=== PATIENT | female | born 1965 | race American Indian/Alaskan Native ===

== ENCOUNTER 2016-10-13 14:49 | Emergency (ER) | payer OTHER ==
--- NOTE | 2016-10-13 16:38 | Emergency Department Report ---
Chief Complaint: High BP Stated Complaint: HIGH BP Time Seen by Provider: 10/13/16 16:38 - HPI History of Present Illness: Patient here complaining 9 pain to head since last night. She says she went to the fire station and her blood pressure was elevated. She is complaining of left-sided chest pain started today. She said the pain is constant and is not radiating and it's 5 out of 10 to her having the left chest. She said that she has never been diagnosed with high blood pressure but she's been told that her blood pressure was elevated in the past. Blood pressure is 150/101 at present. Denies any nausea or vomiting. Patient says she has an appointment with her primary care physician on Sunday who is Dr. Rosie Aguilera. Eyes any diaphoresis, shortness of breath or fever or chills. - ROS Review of Systems: All systems are negative unless stated in HPI above. - Exam Vital Signs: Vital Signs 10/13/16 16:09 Temperature 98.9 F Pulse Rate 87 Respiratory 16 Rate Blood Pressure 150/101 O2 Sat by Pulse 97 Oximetry Physical Exam: General: This is a 51-year-old female well-nourished well-developed in no acute distress. CV: S1, S2. Regular rate and rhythm. Blood pressure is 150/101. Lungs: Clear to auscultate bilaterally, rhonchi wheezes or rales. MSE screening note: Focused history and physical exam performed. Due to findings the following was ordered: See MDM ED Medical Decision Making - Medical Decision Making Medical decision making: Patient seen by provider in triage area. Appropriate protocol activated and patient to main ED to be seen by physician. ED Disposition for MSE Condition: Stable
[2016-10-13 19:29] LABS: Hematocrit 38.9 % (30.3-42.9); Hemoglobin 13.2 gm/dl (10.1-14.3); Mean Corpuscular HGB Conc 34 % (30-34); Mean Corpuscular Hemoglobin 31 pg (28-32); Mean Corpuscular Volume 93 fl (79-97); Platelet Count 217 K/mm3 (140-440); White Blood Count 7.3 K/mm3 (4.5-11.0)
[2016-10-13 19:44] LABS: Creatine Kinase MB 1.2 ng/mL (0.0-4.0)
[2016-10-13 19:45] LABS: Alanine Aminotransferase 18 units/L (7-56); Albumin 4.3 g/dL (3.9-5); Albumin/Globulin Ratio 1.3 %; Alkaline Phosphatase 60 units/L (35-129); Anion Gap 19 mmol/L; BUN/Creatinine Ratio 17.77; Bilirubin,Total 0.2 mg/dL (0.1-1.2); Blood Urea Nitrogen 16 mg/dL (7-17); Calcium 9.3 mg/dL (8.4-10.2); Carbon Dioxide 25 mmol/L (22-30); Chloride 97.6 mmol/L (98-107); Creatine Kinase 122 units/L (30-135); Glucose 111 mg/dL (65-100); Potassium 3.6 mmol/L (3.6-5.0); Sodium 138 mmol/L (137-145); Total Protein 7.6 g/dL (6.3-8.2)
[2016-10-13 20:15] LABS: Basophils % (Manual) 0 % (0.0-1.8); Blastocytes % (Manual) 0 %
[2016-10-13 20:16] LABS: Diff Status Complete; RBC Morphology Normal
[2016-10-13 23:33] LABS: Creatine Kinase MB 1.1 ng/mL (0.0-4.0)
[2016-10-13 23:34] LABS: Creatine Kinase 121 units/L (30-135)
[2016-10-14 00:41] VITALS: BP 152/109
--- NOTE | 2016-10-14 18:41 | ED Elopement Review ---
ED Pt Elopement review - Results review Lab results: Laboratory Tests 10/13/16 10/13/16 10/13/16 19:00 19:00 22:58 WBC 7.3 RBC 4.20 Hgb 13.2 Hct 38.9 MCV 93 MCH 31 MCHC 34 RDW 14.0 Plt Count 217 Lymph % (Auto) Geoscience Specialist Add Manual Diff Complete Total Counted 100 Seg Neutrophils % Geoscience Specialist Seg Neuts % (Manual) 28.0 L Band Neutrophils % 0 Lymphocytes % (Manual) 65.0 H Reactive Lymphs % (Man) 0 Monocytes % (Manual) 5.0 Eosinophils % (Manual) 2.0 Basophils % (Manual) 0 Metamyelocytes % 0 Myelocytes % 0 Promyelocytes % 0 Blast Cells % 0 Nucleated RBC % Not Reportable Seg Neutrophils # Man 2.0 Band Neutrophils # 0.0 Lymphocytes # (Manual) 4.7 Abs React Lymphs (Man) 0.0 Monocytes # (Manual) 0.4 Eosinophils # (Manual) 0.1 Basophils # (Manual) 0.0 Metamyelocytes # 0.0 Myelocytes # 0.0 Promyelocytes # 0.0 Blast Cells # 0.0 WBC Morphology Not Reportable Hypersegmented Neuts Not Reportable Hyposegmented Neuts Not Reportable Hypogranular Neuts Not Reportable Smudge Cells Not Reportable Toxic Granulation Not Reportable Toxic Vacuolation Not Reportable Dohle Bodies Not Reportable Pelger-Huet Anomaly Not Reportable Michele Rods Not Reportable Platelet Estimate Appears normal Clumped Platelets Not Reportable Plt Clumps, EDTA Not Reportable Large Platelets Not Reportable Giant Platelets Not Reportable Platelet Satelliting Not Reportable Plt Morphology Comment Not Reportable RBC Morphology Normal Dimorphic RBCs Not Reportable Polychromasia Not Reportable Hypochromasia Not Reportable Poikilocytosis Not Reportable Anisocytosis Not Reportable Microcytosis Not Reportable Macrocytosis Not Reportable Spherocytes Not Reportable Pappenheimer Bodies Not Reportable Sickle Cells Not Reportable Target Cells Not Reportable Tear Drop Cells Not Reportable Ovalocytes Not Reportable Helmet Cells Not Reportable [place] Bodies Not Reportable [place] Rings Not Reportable Vidal Cells Not Reportable Bite Cells Not Reportable Crenated Cell Not Reportable Elliptocytes Not Reportable Acanthocytes (Spur) Not Reportable Rouleaux Not Reportable Hemoglobin C Crystals Not Reportable Schistocytes Not Reportable Malaria parasites Not Reportable Daniele Bodies Not Reportable Hem Pathologist Commnt No Sodium 138 Potassium 3.6 Chloride 97.6 L Carbon Dioxide 25 Anion Gap 19 BUN 16 Creatinine 0.9 Estimated GFR > 60 BUN/Creatinine Ratio 17.77 Glucose 111 H Calcium 9.3 Total Bilirubin 0.2 AST 16 ALT 18 Alkaline Phosphatase 60 Total Creatine Kinase 122 121 CK-MB (CK-2) 1.2 1.1 CK-MB (CK-2) Rel Index 0.9 0.9 Troponin T < 0.010 < 0.010 Total Protein 7.6 Albumin 4.3 Albumin/Globulin Ratio 1.3 - Call Back decision Pt Call Back Decision: No action required
== END 2016-10-14 04:37 | disposition left against medical advice (07) ==
LOC: ED 14:49
DX: R51 Headache (principal); R07.9 Chest pain, unspecified; R03.0 Elevated blood-pressure reading, without diagnosis of hypertension; Z53.21 Procedure and treatment not carried out due to patient leaving prior to being seen by health care provider
CPT/HCPCS: 36415; 80053; 82550; 82553; 84484; 85007; 85025; 93005; 93010